=== PATIENT | male | born 1995 | race Caucasian/White ===

== ENCOUNTER 2023-06-07 01:34 | Day surgery (SDC) | payer MEDICARE, MEDICAID, SELFPAY ==
[2023-05-25 13:59] VITALS: BMI 23.3
[2023-06-07 08:45] VITALS: BP 124/80; PULSE 75; RESP 18; TEMP 36.4; O2SAT 99; BMI 24.3
--- NOTE | 2023-06-07 09:03 | P.HP_ITS ---
History of Present Illness History of Present Illness Consent: Risks, benefits, and alternatives have been discussed and questions answered. Patient agrees to proceed with procedure. Chief complaint: dysphagia Narrative: Jose Mcknight is a 27 year old male Presents for EGD. Patient has a history of autism. He typically does not complain but family has noticed that he clears his throat frequently. There is some concern that he may have have difficulty swallowing. At 1 point was treated for possible acid reflux with no specific change in symptoms. Patient self denies heartburn or any a problems. He tells every 1 that he is fine. Patient referred now for EGD to exclude upper GI difficulties. Family history is noncontributory. Review of Systems Review of Systems: Review of systems noncontributory. FOR[facility]LY [facility] Past Medical History Medical History Autism H/O prematurity Social History Social History (Updated 05/02/23 @ 11:26 by Cadence Liz [facility]) Smoking status: Never smoker Second hand tobacco smoke exposure: No Alcohol intake: never Substance use: never Substance use type: does not use Living arrangements: with family Spiritual care concerns: No Meds Home Medications and Allergies Home Medications Medication Instructions Recorded Confirmed Type cetirizine 10 mg tablet (Zyrtec) 10 mg PO DAILY 12/01/21 06/07/23 History fluticasone propionate 50 1 spray intranasal DAILY 05/02/23 06/07/23 History mcg/actuation nasal spray,suspension (Flonase Allergy Relief) montelukast 10 mg tablet 10 mg PO QHS #30 tabs 05/02/23 06/07/23 Rx Allergies Allergy/AdvReac Type Severity Reaction Status Date / Time No Known Allergies Allergy Verified 06/07/23 08:54 Vital Signs Vital Signs - 24 hr 06/07/23 08:45 Temperature 97.5 F L Pulse Rate 75 Respiratory Rate 18 Blood Pressure 124/80 Pulse Oximetry 99 Oxygen Delivery Room Air Exam Narrative: Physical exam reveals patient to be alert. Vital signs stable. HEENT exam is unremarkable. Patient is anicteric. Lungs are clear to auscultation and percussion. Heart is without murmur or extra sounds. Abdomen bowel sounds are present soft nontender with no organomegaly. Assessment and Plan Assessment and plan (1) Autism: Code(s): F84.0 - Autistic disorder Status: Acute (2) Dysphagia: Code(s): R13.10 - Dysphagia, unspecified Status: Acute Assessment and Plan: Patient with apparent dysphagia. Main symptom appears to be difficulty clearing throat but observation suggesting may have difficulty swallowing. History is somewhat difficult to obtain because of his autism. Plan for EGD to assess more thoroughly. Further recommendations may be given after endoscopy.
[2023-06-07] MEDS: LACTATED RINGERS 1,000 ML 150 ML IV CONT (09:15)
--- NOTE | 2023-06-07 09:17 | WPDANESEPPF ---
Anes - Initial Pre Proc Eval Procedure: Operation Date: 06/07/23 09:30 Proposed Procedures p Esophagogastroduodenoscopy - Hardik Kelley MD Date/Time: 06/07/23 09:17 Surgeon: Hardik Kelley MD Pre Op Diagnosis: dysphagia Patient Data Age: 27 Gender: M Height: 1.63 m Weight: 64.4 kg Last Vital Signs Temp 97.5 F L 06/07/23 08:45 Pulse 75 06/07/23 08:45 Resp 18 06/07/23 08:45 BP 124/80 06/07/23 08:45 Pulse Ox 99 06/07/23 08:45 O2 Del Method Room Air 06/07/23 08:45 Allergies Allergy/AdvReac Type Severity Reaction Status Date / Time No Known Allergies Allergy Verified 06/07/23 08:54 Home Medications Medication Instructions Recorded Confirmed Type cetirizine 10 mg tablet (Zyrtec) 10 mg PO DAILY 12/01/21 06/07/23 History fluticasone propionate 50 1 spray intranasal DAILY 05/02/23 06/07/23 History mcg/actuation nasal spray,suspension (Flonase Allergy Relief) montelukast 10 mg tablet 10 mg PO QHS #30 tabs 05/02/23 06/07/23 Rx Patient hx anesthesia problems: none Family hx anesthesia problems: none Results Review: All pre-operative results and documents have been reviewed as part of the pre-operative evaluation. FORMERLY [facility] Past Medical History Medical History Autism H/O prematurity Social History Social History (Updated 05/02/23 @ 11:26 by Cadence Liz CMA) Smoking status: Never smoker Second hand tobacco smoke exposure: No Alcohol intake: never Substance use: never Substance use type: does not use Living arrangements: with family Spiritual care concerns: No Anes - Eval Final PreProcedure Day of Procedure 06/07/23 09:17 Patient weight: normal Heart: regular rate and rhythm Lungs: clear to auscultation Airway: Mallampati scale class II Neurological: alert and oriented Last oral intake: >/= 8 hours ASA classification: II Emergent: no Anesthetic plan: proceed Anesthesia type and monitoring: general GIVS and standard monitoring Results Review: All pre-operative results and documents have been reviewed as part of the pre-operative evaluation. Informed Consent: The patient's anesthetic plan and its attendant risks and benefits were discussed with the patient/family/POA. Questions were solicited and answers provided to the satisfaction of the patient/family/POA.
[2023-06-07 09:57] VITALS: BP 108/66; PULSE 78; RESP 15; O2SAT 98
[2023-06-07 10:07] VITALS: BP 110/67; PULSE 77; RESP 14; O2SAT 98
[2023-06-07 10:17] VITALS: BP 126/86; PULSE 78; RESP 16; O2SAT 98
== END 2023-06-07 10:27 | disposition home or self-care (01) ==
PROVIDERS: PCP Family Medicine; Visit Provider Internal Medicine Gastroenterology
PROC: 0DJ08ZZ Inspection of Upper Intestinal Tract, Via Natural or Artificial Opening Endoscopic (ICD-10-PCS; CPT 43235; principal; 2023-06-07 09:30)
DX: R13.10 Dysphagia, unspecified (principal); K31.7 Polyp of stomach and duodenum; F84.0 Autistic disorder
CPT/HCPCS: 43239; 87081; 88305; J2001; J2704; J7120

== ENCOUNTER 2025-10-25 13:37 | Outpatient (CLI) | payer MEDICARE, MEDICAID, SELFPAY ==
--- NOTE | ~2025-10-25 | US_ITS ---
EXAM/PROCEDURE: US axilla LT HISTORY: R22.30 - Localized swelling, mass and lump, unspecified u... COMPARISON: None available. TECHNIQUE: Directed examination of the left axillary region FINDINGS: In the area of palpable concern, a 1.2 x 1.5 x 0.8 cm wider than tall oval shaped well marginated hypoechoic lesion is present in the deep subcutaneous soft tissues. There appears to be posterior through enhancement as well as internal echoes. Also noted a small benign-appearing lymph node. IMPRESSION: 1.5 x 1.2 x 0.8 cm complex benign cystic appearing lesion in the subcutaneous soft tissues in the left axillary region which may represent sebaceous or inclusion cyst. Correlate with follow-up clinical presentation and exam. If the lesion increases in size or symptoms worsen, repeat ultrasound recommended. Reviewed, dictated and finalized at location A. [facility] IMPRESSION: 1.5 x 1.2 x 0.8 cm complex benign cystic appearing lesion in the subcutaneous s oft tissues in the left axillary region which may represent sebaceous or inclus ion cyst. Correlate with follow-up clinical presentation and exam. If the lesio n increases in size or symptoms worsen, repeat ultrasound recommended.
== END 2025-10-25 13:38 | disposition home or self-care (01) ==
LOC: ANHFOHIMG 13:38
PROVIDERS: PCP Student in an Organized Health Care Education/Training Program; Visit Provider Student in an Organized Health Care Education/Training Program
DX: R22.32 Localized swelling, mass and lump, left upper limb (principal)
CPT/HCPCS: 76882